=== PATIENT | female | born 1995 | race Caucasian/White ===

== ENCOUNTER → 2019-02-18 | Day surgery (SDC) | payer OTHER ==
[~2019-02-18] MED LIST: Acetaminophen 325 MG TAB PO PRN; Bupivacaine HCl 0.5%/Epinephrine 1:200,000/PF 30 ml Vial ONE; Fentanyl 100 MCG/2 ML VIAL ONE; Fentanyl 100 MCG/2 ML VIAL SLOW IVP PRN; HYDROcodone/Acetaminophen 10/325 mg Tablet PO PRN; HYDROcodone/Acetaminophen 5/325 mg Tablet ONE; Ketorolac Tromethamine 30 MG/ML VIAL ONE; Lidocaine 1% (PF) 30 ML VIAL ONE; Lidocaine 1% PF 5 ML VIAL ONE; Meperidine HCl/PF 25 MG/ML VIAL ONE; Midazolam HCl 2 mg/2 ml Vial ONE; Ondansetron PF 4 MG/2 ML Vial IVP PRN; Ondansetron PF 4 MG/2 ML Vial ONE; PROPOFOL 200 MG/20 ML VIAL ONE; Promethazine HCl 25 MG/ML VIAL IM PRN; Ropivacaine 0.2% 550 ML 550 ML NERVE BLCK SCH; Ropivacaine 0.2% HCl/PF (40 MG/20 ML VIAL) ONE; Ropivacaine 0.5% HCl/PF (150 MG/30 ML VIAL) ONE; Zolpidem Tartrate 5 MG TAB PO PRN; diphenhydrAMINE 50 MG/ML VIAL ONE; traMADol HCl 50 MG TAB PO PRN
--- NOTE | 2019-02-18 14:30 | RAD ---
XR Ankle Lt 3 View STANDARD HISTORY: Postop COMPARISON: None. FINDINGS: Intraoperative films show open reduction and internal fixation of a bimalleolar fracture wi th plate and screws. IMPRESSION: Open reduction and internal fixation of distal fibular and medial malleolar fracture
--- NOTE | 2019-02-19 13:59 | OP ---
DATE OF PROCEDURE: 02/18/2019 PREOPERATIVE DIAGNOSIS: Left ankle bimalleolar fracture. POSTOPERATIVE DIAGNOSIS: Left ankle bimalleolar fracture. OPERATIVE PROCEDURE: Open reduction and internal fixation of left bimalleolar ankle fracture. RENAL DIALYSIS RN: Alonzo Wheeler PA-C ANESTHESIA: General via LMA augmented with lateral sciatic indwelling block and a single-shot adductor canal block. FINDINGS: Bimalleolar fracture to include lateral malleolus, medial malleolus, and posterior malleolus, but no clinical evidence of a talar dome fracture. TOURNIQUET TIME: 60 minutes at 300 mmHg. ESTIMATED BLOOD LOSS: Less than 20 mL. DRAINS: None. SPECIMENS: None. COMPLICATIONS: None. COUNTS: Correct. COMPONENTS USED: The components used in this particular procedure was a Synthes nonlocking 7-hole one-third tubular plate and a single 3.5 cancellous cannulated screw. INDICATIONS FOR SURGERY: Kacie is a 23-year-old female, who fell from a standing height while stepping over a curve approximately a week ago. She was treated in [place], placed in a splint and presented to our outpatient clinic for evaluation, which demonstrated the fracture. She elected to proceed with open reduction and internal fixation as definitive treatment of this problem. PROCEDURE IN DETAIL: After informed consent was obtained in the preoperative holding area, the patient received preoperative antibiotics. She was then taken to the operative suite, where general anesthesia was induced. Once adequate anesthesia was obtained, LMA was placed and secured, the patient was positioned appropriately on the operating table. A well-padded tourniquet was placed over the left proximal thigh. The left lower extremity was then prepped and draped in usual sterile fashion. Prior to exsanguination, a time-out was called and all members of the surgical team agreed upon site, surgeon, and patient. Then, the extremity was exsanguinated. Tourniquet was raised, where it stayed for the remainder of the case. Attention was turned primarily to the medial malleolus, which was opened and copiously irrigated. We identified the fracture and bleeding was controlled with Bovie electrocautery. I was satisfied that there was no talar dome fracture. After thorough inspection from the medial compartment, we then turned our attention to the lateral malleolus. A transverse incision was made directly over the fracture site down to the tip of the malleolus. Deeper tissues were divided with Bovie electrocautery in series of elevators and a new fracture site was then copiously irrigated with normal saline. Primary reduction was achieved with a clamp and then we used anterior to posterior provisional interfragmentary screw to hold reduction. Once this was established, we then chose a 7-hole plate to span the fracture from tip of the malleolus to approximately 3 cortices above the fracture site. We used a series of cortical and cancellous screws to maintain fracture reduction. Happy with the near anatomic reduction of lateral side, we then turned our attention to the medial side. We placed a single Taty wire through the axis of the fracture after open reduction and this was overdrilled with a 3.5 cannulated drill and a single 3.5 partially-threaded cannulated screw was placed to hold fracture reduction on the medial malleolus. Both sites were irrigated copiously with normal saline. Primary closure was accomplished with 0 interrupted Vicryl, subcutaneous layer was closed 2-0 interrupted Vicryl, stainless steel hailee were used to reapproximate the skin. The patient was placed in a trilaminar plaster splint. This was allowed to cure in appropriate reduction maneuver and overwrapped with an Yon bandage. The procedure was terminated without any complications. The patient was awakened in the operative suite, taken to recovery room and she will be discharged to home with strict nonweightbearing precautions. Job ID: [id number]
--- NOTE | 2019-02-22 13:56 | HP ---
ANTICIPATED DATE OF SURGERY: 02/18/2019. 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 She [facility] and was subsequently referred to my office. She has had no previous ankle problems. PAST MEDICAL HISTORY: The patient is otherwise in good health. She takes medicine for ADHD, is needed during the school year. MEDICATIONS: She normally takes no routine medications. ALLERGIES: SHE HAS A QUESTIONABLE ALLERGY TO DOXYCYCLINE. FAMILY HISTORY: Otherwise unremarkable. SOCIAL HISTORY: Otherwise unremarkable. REVIEW OF SYSTEMS: Otherwise unremarkable. PHYSICAL EXAMINATION: GENERAL: Reveals a healthy female. HEENT: Unremarkable. NECK: Supple. CHEST: Clear. HEART: Regular rate and rhythm. ABDOMEN: Soft and nontender. PELVIC: Deferred. RECTAL: Deferred. BREAST: Deferred. EXTREMITIES: Pertinent findings in the left foot and ankle. There is moderate swelling and bruising about the left ankle with extension to the dorsum of the foot. The foot is nontender. There is tenderness over the medial and lateral malleoli. There is a positive Cotton sign. There is decreased motion secondary to pain. Neurovascular exam is intact. Distal pulses are 2+. There is good capillary refill. IMAGING STUDIES: X-rays of the left ankle from the day of injury revealed a displaced bimalleolar fracture of the left ankle with slight lateral subluxation of the talus and there is also a nondisplaced small fracture on the lateral dome of the talus. IMPRESSION: 1. Bimalleolar fracture, left ankle. 2. Nondisplaced fracture, lateral dome of the left talus. PLAN: Open reduction and internal fixation of dome of lateral component with possible debridement of the talar dome fracture if mobile is loose. The nature of the surgery, length of recovery, and potential complications such as infection, loss of motion, incomplete relief, delayed or nonunion, neurovascular injury, thromboembolic phenomena, posttraumatic degenerative arthritis, possible need to remove the implants and need for additional treatment, and repeat surgery have been discussed in detail. Job ID: [id number]
== END ==
LOC: SDC 11:23
PROVIDERS: ATTEND Orthopaedic Surgery
PROC: 3E0T3BZ Introduction of Anesthetic Agent into Peripheral Nerves and Plexi, Percutaneous Approach (ICD-10-PCS; principal; 2019-02-18)
PROC: 0QSH04Z Reposition Left Tibia with Internal Fixation Device, Open Approach (ICD-10-PCS; principal; 2019-02-18)
PROC: 0QSK04Z Reposition Left Fibula with Internal Fixation Device, Open Approach (ICD-10-PCS; principal; 2019-02-18)
DX: S82.852A Displaced trimalleolar fracture of left lower leg, initial encounter for closed fracture (principal); G89.18 Other acute postprocedural pain; F90.9 Attention-deficit hyperactivity disorder, unspecified type; W18.39XA Other fall on same level, initial encounter
CPT/HCPCS: 36415; 76000; 84702; A4306; C1713; J0670; J0690; J1200; J1885; J2001; J2175; J2250; J2405; J2704; J2795; J3010